=== PATIENT | female | born 1935 | race Two or more races ===

== ENCOUNTER 2025-03-06 06:19 | Emergency (ER) | payer OTHER ==
[~2025-03-06] VITALS: Ht 149.9 cm; Wt 35.4 kg
[2025-03-06 06:32] VITALS: O2SAT 95
[2025-03-06] MEDS ORDERED: HYDROCHLOROTH12.5 M2 (06:35)
[2025-03-06] MEDS ORDERED: PRILOSEC OTC20 MG (06:35)
[2025-03-06] MEDS ORDERED: LIPITOR40 M1 (06:36)
[2025-03-06] MEDS ORDERED: ZOLOFT20 MG/1 ML (06:36)
[2025-03-06] MEDS ORDERED: TOPROL XL25 M1 (06:36)
[2025-03-06 09:56] VITALS: BP 168/66
== END 2025-03-06 09:57 | disposition home or self-care (01) ==
LOC: ER 06:19
DX: F41.9 Anxiety disorder, unspecified (principal); T43.225A Adverse effect of selective serotonin reuptake inhibitors, initial encounter; Y92.89 Other specified places as the place of occurrence of the external cause; I10 Essential (primary) hypertension; Z88.6 Allergy status to analgesic agent; Z91.014 Allergy to mammalian meats; Z91.013 Allergy to seafood